=== PATIENT | male | born 1945 | race Caucasian/White ===

== ENCOUNTER 2023-01-25 16:52 | Inpatient (IN) | payer MEDICARE ==
[~2023-01-25] VITALS: Ht 177.8 cm; Wt 83.5 kg
[2023-01-26] MEDS ORDERED: ACETAMINOPHEN 325 MG TABLET PO PRN (11:30)
[2023-01-26 12:26] LABS: BASOPHILS % (AUTO) 0.7 % (0.0-2.0); EOSINOPHILS % (AUTO) 1.9 % (1.0-6.0); HEMATOCRIT 51.7 % (41-53); HEMOGLOBIN 17.4 g/dL (13.5-17.5); LYMPHOCYTES # (AUTO) 2.1 K/uL (1.0-4.8); LYMPHOCYTES % (AUTO) 21.9 % (22.0-44.0); MEAN CORPUSCULAR HGB CONC 33.6 G/dL (31.0-37.0); MEAN CORPUSCULAR VOLUME 101 fL (80-100); MONOCYTES # (AUTO) 1.3 K/uL (0.1-1.0); MONOCYTES % (AUTO) 13.2 % (2.0-9.0); NEUTROPHILS # (AUTO) 6.1 K/uL (1.8-7.7); NEUTROPHILS % (AUTO) 62.3 % (40.0-70.0); PLATELET COUNT (AUTO) 200 K/uL (150-450); RED BLOOD CELL COUNT(AUTO) 5.11 MIL/uL (4.50-5.90)
[2023-01-26 12:42] LABS: ANION GAP 5 mmol/L (8-16); CALCIUM, TOTAL 9.2 mg/dL (8.8-10.5); CARBON DIOXIDE 31 mmol/L (22-29); CHLORIDE 100 mmol/L (98-107); CREATININE 0.98 mg/dL (0.60-1.30); GLOMERULAR FILTR. RATE CALC > 60 mL/min (>60); GLUCOSE,RANDOM 100 mg/dL (70-110); POTASSIUM 4.1 mmol/L (3.5-5.1); SODIUM SERUM 136 mmol/L (136-145); URIC ACID 6.6 mg/dL (2.6-7.2)
[2023-01-26] MEDS: PredniSONE 20 MG TABLET PO SCH (12:55)
[2023-01-26 13:15] VITALS: BP 113/75; PULSE 72; RESP 18; TEMP 98.1; O2SAT 96
[2023-01-26 13:32] LABS: C-REACTIVE PROTEIN QUANT 9.62 mg/dL (0.00-0.30)
[2023-01-26 13:54] LABS: ERYTHROCYTE SEDIMENTATION RATE 15 MM/HR (0-15)
[2023-01-26] MEDS: DICLOFENAC SODIUM 1% 100 GM GEL [4GM] TP SCH ×2 (16:53→21:19)
[2023-01-26] MEDS: DOCUSATE SODIUM 100 MG CAPSULE PO SCH (21:18)
[2023-01-26] MEDS: CARVEDILOL 6.25 MG TABLET PO SCH (21:18)
[2023-01-26] MEDS: MELATONIN 3 MG TABLET PO PRN (21:19)
[2023-01-26] MEDS: FAMOTIDINE 20 MG TABLET PO SCH (21:19)
[2023-01-26] MEDS: SENNOSIDES 8.6 MG TABLET PO SCH (21:19)
[2023-01-26 22:17] VITALS: BP 132/78; PULSE 79; RESP 18; TEMP 97.9; O2SAT 95
[2023-01-27 08:05] VITALS: BP 133/72; PULSE 77; RESP 18; TEMP 97.8; O2SAT 98
[2023-01-27] MEDS: FUROSEMIDE 20 MG TABLET PO SCH (08:56)
[2023-01-27] MEDS: ATORVASTATIN CALCIUM 40 MG TABLET PO SCH (08:56)
[2023-01-27] MEDS: DOCUSATE SODIUM 100 MG CAPSULE PO SCH ×2 (08:56→20:18)
[2023-01-27] MEDS: ASPIRIN 81 MG CHEWABLE TABLET PO SCH (08:56)
[2023-01-27] MEDS: CARVEDILOL 6.25 MG TABLET PO SCH ×2 (08:56→20:18)
[2023-01-27] MEDS: DICLOFENAC SODIUM 1% 100 GM GEL [4GM] TP SCH ×3 (08:56→20:32)
[2023-01-27] MEDS: PredniSONE 20 MG TABLET PO SCH (08:56)
[2023-01-27] MEDS: FAMOTIDINE 20 MG TABLET PO SCH ×2 (08:56→20:18)
[2023-01-27 13:02] VITALS: O2SAT 98
[2023-01-27] MEDS: SENNOSIDES 8.6 MG TABLET PO SCH (20:18)
[2023-01-27] MEDS: MELATONIN 3 MG TABLET PO PRN (20:18)
[2023-01-27 21:02] VITALS: BP 119/66; PULSE 84; RESP 19; TEMP 97.4; O2SAT 98
[2023-01-27 21:28] VITALS: O2SAT 97
[2023-01-28] MEDS: DOCUSATE SODIUM 250 MG CAPSULE PO SCH ×2 (08:32→20:57)
[2023-01-28] MEDS: CARVEDILOL 6.25 MG TABLET PO SCH ×2 (08:32→20:57)
[2023-01-28] MEDS: ASPIRIN 81 MG CHEWABLE TABLET PO SCH (08:32)
[2023-01-28] MEDS: PredniSONE 20 MG TABLET PO SCH (08:34)
[2023-01-28] MEDS: FUROSEMIDE 20 MG TABLET PO SCH (08:35)
[2023-01-28] MEDS: FAMOTIDINE 20 MG TABLET PO SCH ×2 (08:35→20:57)
[2023-01-28] MEDS: ATORVASTATIN CALCIUM 40 MG TABLET PO SCH (08:35)
[2023-01-28] MEDS: DICLOFENAC SODIUM 1% 100 GM GEL [4GM] TP SCH ×3 (08:36→20:58)
[2023-01-28 09:00] VITALS: BP 136/88; PULSE 65; RESP 18; TEMP 97.5; O2SAT 98
[2023-01-28 11:23] VITALS: O2SAT 97
[2023-01-28] MEDS: MELATONIN 3 MG TABLET PO PRN (20:58)
[2023-01-28] MEDS: SENNOSIDES 8.6 MG TABLET PO SCH (20:58)
[2023-01-29 00:57] VITALS: BP 114/82; PULSE 71; RESP 19; TEMP 98; O2SAT 96
[2023-01-29 01:08] VITALS: O2SAT 96
[2023-01-29] MEDS: ASPIRIN 81 MG CHEWABLE TABLET PO SCH (08:01)
[2023-01-29] MEDS: ATORVASTATIN CALCIUM 40 MG TABLET PO SCH (08:01)
[2023-01-29] MEDS: FUROSEMIDE 20 MG TABLET PO SCH (08:01)
[2023-01-29] MEDS: FAMOTIDINE 20 MG TABLET PO SCH ×2 (08:01→20:47)
[2023-01-29] MEDS: CARVEDILOL 6.25 MG TABLET PO SCH ×2 (08:01→20:47)
[2023-01-29] MEDS: DOCUSATE SODIUM 250 MG CAPSULE PO SCH ×2 (08:01→20:47)
[2023-01-29] MEDS: DICLOFENAC SODIUM 1% 100 GM GEL [4GM] TP SCH ×3 (08:02→20:49)
[2023-01-29 08:05] VITALS: BP 134/89; PULSE 66; RESP 18; TEMP 97.9; O2SAT 98
[2023-01-29 20:20] VITALS: BP 109/64; PULSE 80; RESP 18; TEMP 97.4; O2SAT 98
[2023-01-29] MEDS: APIXABAN 5 MG TABLET PO SCH (20:47)
[2023-01-29] MEDS: SENNOSIDES 8.6 MG TABLET PO SCH (20:47)
[2023-01-29] MEDS: ETHYL ALCOHOL 62% ANTISEPTIC NASAL SANITIZER 0.6 ML AMPUL NASAL SCH (21:09)
[2023-01-29 22:38] VITALS: O2SAT 98
[2023-01-29] MEDS: MELATONIN 3 MG TABLET PO PRN (23:39)
[2023-01-30 09:10] VITALS: BP 136/92; PULSE 75; RESP 18; TEMP 98; O2SAT 96
[2023-01-30] MEDS: DOCUSATE SODIUM 250 MG CAPSULE PO SCH ×2 (09:10→20:57)
[2023-01-30] MEDS: ETHYL ALCOHOL 62% ANTISEPTIC NASAL SANITIZER 0.6 ML AMPUL NASAL SCH ×2 (09:10→20:55)
[2023-01-30] MEDS: APIXABAN 5 MG TABLET PO SCH ×2 (09:11→20:56)
[2023-01-30] MEDS: CARVEDILOL 6.25 MG TABLET PO SCH ×2 (09:11→20:56)
[2023-01-30] MEDS: FAMOTIDINE 20 MG TABLET PO SCH ×2 (09:12→20:56)
[2023-01-30] MEDS: FUROSEMIDE 20 MG TABLET PO SCH (09:12)
[2023-01-30] MEDS: ATORVASTATIN CALCIUM 40 MG TABLET PO SCH (09:12)
[2023-01-30] MEDS: DICLOFENAC SODIUM 1% 100 GM GEL [4GM] TP SCH ×3 (09:12→20:57)
[2023-01-30 20:56] VITALS: BP 109/80; PULSE 65; RESP 20; TEMP 97.6; O2SAT 95
[2023-01-30] MEDS: SENNOSIDES 8.6 MG TABLET PO SCH (20:57)
[2023-01-30] MEDS: MELATONIN 3 MG TABLET PO PRN (21:15)
[2023-01-31] MEDS: DICLOFENAC SODIUM 1% 100 GM GEL [4GM] TP SCH ×3 (07:43→20:10)
[2023-01-31] MEDS: DOCUSATE SODIUM 250 MG CAPSULE PO SCH ×2 (07:43→20:09)
[2023-01-31] MEDS: CARVEDILOL 6.25 MG TABLET PO SCH ×2 (07:43→20:09)
[2023-01-31] MEDS: ETHYL ALCOHOL 62% ANTISEPTIC NASAL SANITIZER 0.6 ML AMPUL NASAL SCH ×2 (07:43→20:08)
[2023-01-31] MEDS: FAMOTIDINE 20 MG TABLET PO SCH ×2 (07:43→20:09)
[2023-01-31] MEDS: APIXABAN 5 MG TABLET PO SCH ×2 (07:44→20:09)
[2023-01-31] MEDS: FUROSEMIDE 20 MG TABLET PO SCH (07:44)
[2023-01-31] MEDS: ATORVASTATIN CALCIUM 40 MG TABLET PO SCH (07:44)
[2023-01-31 08:15] VITALS: BP 136/74; PULSE 80; RESP 18; TEMP 98.4; O2SAT 98
[2023-01-31 20:02] VITALS: BP 117/84; PULSE 79; RESP 19; TEMP 97.5; O2SAT 98
[2023-01-31] MEDS: SENNOSIDES 8.6 MG TABLET PO SCH (20:08)
[2023-01-31] MEDS: MELATONIN 3 MG TABLET PO PRN (20:27)
[2023-01-31 21:18] VITALS: O2SAT 98
[2023-02-01] MEDS: FAMOTIDINE 20 MG TABLET PO SCH ×2 (07:45→20:05)
[2023-02-01] MEDS: ETHYL ALCOHOL 62% ANTISEPTIC NASAL SANITIZER 0.6 ML AMPUL NASAL SCH ×2 (07:45→20:04)
[2023-02-01] MEDS: APIXABAN 5 MG TABLET PO SCH ×2 (07:46→20:05)
[2023-02-01] MEDS: DOCUSATE SODIUM 250 MG CAPSULE PO SCH ×2 (07:46→20:04)
[2023-02-01] MEDS: CARVEDILOL 6.25 MG TABLET PO SCH ×2 (07:46→20:04)
[2023-02-01] MEDS: ATORVASTATIN CALCIUM 40 MG TABLET PO SCH (07:46)
[2023-02-01] MEDS: FUROSEMIDE 20 MG TABLET PO SCH (07:46)
[2023-02-01] MEDS: DICLOFENAC SODIUM 1% 100 GM GEL [4GM] TP SCH ×3 (07:47→20:07)
[2023-02-01 08:00] VITALS: BP 125/86; PULSE 68; RESP 19; TEMP 98.1; O2SAT 97
[2023-02-01] MEDS: ALLOPURINOL 100 MG TABLET PO SCH (11:08)
[2023-02-01] MEDS ORDERED: ALLO-97 PO (19:57)
[2023-02-01] MEDS ORDERED: CARV6 PO (19:57)
[2023-02-01] MEDS ORDERED: APIX5TAB PO (19:57)
[2023-02-01] MEDS ORDERED: FAMO20 PO (19:57)
[2023-02-01] MEDS ORDERED: ATOR40TA28 PO (19:57)
[2023-02-01] MEDS: SENNOSIDES 8.6 MG TABLET PO SCH (20:05)
[2023-02-01 20:47] VITALS: BP 122/96; PULSE 62; RESP 18; TEMP 97.6; O2SAT 96
[2023-02-02 01:07] VITALS: BP 122/88; PULSE 61; RESP 18; TEMP 97.3; O2SAT 96
[2023-02-02 05:47] VITALS: BP 124/82; PULSE 64; RESP 18; TEMP 97.8; O2SAT 96
[2023-02-02] MEDS: ALLOPURINOL 100 MG TABLET PO SCH (06:59)
[2023-02-02] MEDS: APIXABAN 5 MG TABLET PO SCH (07:00)
[2023-02-02] MEDS: FAMOTIDINE 20 MG TABLET PO SCH (07:00)
[2023-02-02] MEDS: ATORVASTATIN CALCIUM 40 MG TABLET PO SCH (07:00)
[2023-02-02] MEDS: DOCUSATE SODIUM 250 MG CAPSULE PO SCH (07:05)
[2023-02-02] MEDS: CARVEDILOL 6.25 MG TABLET PO SCH (07:06)
[2023-02-06] MEDS ORDERED: APIXABAN 5 MG TABLET PO SCH (09:00)
== END 2023-02-02 07:05 | disposition home or self-care (01) | DRG 64 ==
LOC: 2WR 01-26 10:48
PROVIDERS: ADMIT Physical Medicine & Rehabilitation; ATTEND Physical Medicine & Rehabilitation
DX: I63.541 Cerebral infarction due to unspecified occlusion or stenosis of right cerebellar artery (principal); I61.9 Nontraumatic intracerebral hemorrhage, unspecified; I50.20 Unspecified systolic (congestive) heart failure; I43 Cardiomyopathy in diseases classified elsewhere; E85.4 Organ-limited amyloidosis; D68.59 Other primary thrombophilia; G81.91 Hemiplegia, unspecified affecting right dominant side; I48.19 Other persistent atrial fibrillation; M10.9 Gout, unspecified; I70.202 Unspecified atherosclerosis of native arteries of extremities, left leg; I11.0 Hypertensive heart disease with heart failure; K59.00 Constipation, unspecified; E78.5 Hyperlipidemia, unspecified; D75.1 Secondary polycythemia; I68.0 Cerebral amyloid angiopathy; M79.671 Pain in right foot; R41.89 Other symptoms and signs involving cognitive functions and awareness; R27.0 Ataxia, unspecified; Z79.01 Long term (current) use of anticoagulants; Z79.899 Other long term (current) drug therapy
CPT/HCPCS: 70450; 80048; 84550; 85025; 85651; 86140; 87081; 92523; 92610; 93925; 93970; 97110; 97112; 97116; 97162; 97530; 97535; 99285; 99366